=== PATIENT | female | born 1995 | race Caucasian/White ===

== ENCOUNTER 2018-07-10 12:05 | Inpatient (IN) ==
[2018-07-10] MEDS ORDERED: PEPCID IV PRN (12:16)
[2018-07-10] MEDS ORDERED: PEPCID PO PRN (12:16)
[2018-07-10] MEDS ORDERED: TYLENOL PO PRN (12:16)
[2018-07-10] MEDS ORDERED: REGLAN PO ONE (12:16)
[2018-07-10] MEDS ORDERED: LR 500 ML IV ONE (12:16)
[2018-07-10] MEDS ORDERED: KEFZOL 1 GM/D5W 1 GM/50 ML IVPB IV PRN (12:16)
[2018-07-10] MEDS ORDERED: STADOL IV PRN (12:16)
[2018-07-10] MEDS ORDERED: PEPCID PO ONE (12:16)
[2018-07-10] MEDS ORDERED: ZOFRAN IV PRN (12:16)
[2018-07-10] MEDS ORDERED: PITOCIN 30 UNITS/NS 30 UNIT/500 ML IV.SOLN IV SCH (12:30)
[2018-07-10] MEDS ORDERED: SODIUM CHLORIDE 0.9% INJ SCH (12:30)
[2018-07-10 12:52] LABS: URINE SOURCE VOIDED
[2018-07-10 12:54] LABS: BASO# 0.03 X1000 (0.0-0.2); BASO% 0.3 % (0.0-0.8); EOS% 1.1 % (0.0-10.0); HEMATOCRIT 35.2 % (37.0-47.0); HEMOGLOBIN 11.7 g/dL (12.0-16.0); IMM GRAN# 0.02 X1000 (0.0-0.04); IMM GRAN% 0.2 % (0.0-0.5); LYMPH# 1.71 X1000 (1.2-3.4); MCH 28.7 PG (27-31); MCHC 33.2 g/dL (33-37); MCV 86.5 FL (81-99); MONO# 0.81 X1000 (0.11-0.59); MPV 10.6 FL (7.4-10.4); NEUT# 6.35 X1000 (1.4-6.5); NEUT% 70.4 % (42.2-75.2); PLT 251 X1000 (130-400); RBC 4.07 XMIL (4.2-5.4); RDW 12.8 % (11.5-14.5); WBC 9.02 X1000 (4.8-10.8)
[2018-07-10] MEDS: LR 1,000 ML IV SCH ×4 (13:15→17:50)
[2018-07-10 13:21] LABS: BILIRUBIN URINE NEGATIVE (NEGATIVE); BLOOD URINE NEGATIVE (NEGATIVE); CLARITY VERY CLOUDY (CLEAR); COLOR YELLOW; GLUCOSE URINE NEGATIVE (NEGATIVE); KETONE URINE NEGATIVE (NEGATIVE); LEUKOCYTES URINE 2+ (NEGATIVE); NITRITE URINE NEGATIVE (NEGATIVE); PROTEIN URINE NEGATIVE (NEGATIVE); SP GRAVITY URINE 1.015; UR AMPHETAMINES QUAL NONE DETECTED (NONE DETECT); UR BARBITUATES QUAL NONE DETECTED (NONE DETECT); UR BENZODIAZEPIN QUAL NONE DETECTED (NONE DETECT); UR CANNABINOIDS QUAL NONE DETECTED (NONE DETECT); UR COCAINE QUAL NONE DETECTED (NONE DETECT); UR METHADONE QUAL NONE DETECTED (NONE DETECT); UR METHAMPHETAMINE QUAL NONE DETECTED (NONE DETECT); UR OPIATES QUAL NONE DETECTED (NONE DETECT); UR OXYCODONE QUAL NONE DETECTED (NONE DETECT); UR PCP QUAL NONE DETECTED (NONE DETECT); UR PROPOXYPHENE QUAL NONE DETECTED (NONE DETECT); UR TCA QUAL NONE DETECTED (NONE DETECT); UROBILINOGEN URINE NORMAL
[2018-07-10 13:24] LABS: HEMOGLOBIN A1C 5.1 % (4.8-6.0)
--- NOTE | 2018-07-10 15:16 | HISTORY AND PHYSICAL ---
CHIEF COMPLAINT: 40 weeks 1 day gestation for induction, history of gastric sleeve. HISTORY OF PRESENT ILLNESS: Patient is a 22-year-old G1, P0 with EDC of 2016, dated by LMP of 10/02/2017 and confirmed with a 13 week 4 day ultrasound that was consistent with dates. She presents at 40 weeks and [address] Westfall's office for desired induction. She had office visit with Dr. Westfall today who has been participating in her care. She has been on 2 times weekly NST for history of gastric sleeve in 2016 for which she lost 135 pounds. records were reviewed and she did see Maternal Medicine for the history of gastric sleeve, and in January had iron studies that were all within normal limits as well as having a nutrition consult. Of note, patient was not able to complete the 1 hour Glucola screen for diabetes. Her hemoglobin A1c was 5.0 in April 2018. She has no history of diabetes prior. She reports that she has been cramping since last night, that it sometimes takes her breath away, but does not notice any regular contraction pattern. She has had good movement. No vaginal bleeding and no leakage of fluid. PAST MEDICAL HISTORY: 1. Obesity (BMI on admit 41.5) 2. History of bipolar depression 3. Social anxiety 4. PTSD post parental divorce 5. ADHD SURGICAL HISTORY: 1. Gastric sleeve in 2016. She had lost 135 pounds post. 2. 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 She states normally these close. She ended up having a surgery at 13 years of age to close the cleft. MEDICATIONS: vitamins, she was taking Zofran up until approximately 1 month ago. ALLERGIES: Concerta. FAMILY MEDICAL HISTORY: Unremarkable per patient. SOCIAL HISTORY: Patient denies alcohol use or drug use. She has a history of tobacco use, but states quit prior to the . OBSTETRIC HISTORY: G1, P0. GBS status negative. She is A positive. Antibody screen negative. Rubella immune. GC and Chlamydia negative. VDRL is nonreactive. Hepatitis B negative, HIV negative, and TSH of 1.330. Ultrasound was performed 05/29/2018. On review of medical records, she was measuring 33 weeks 5 days on that ultrasound, but by dates at 34 and 2. Estimated weight was 2312 g or 5 pounds, and the placenta was posterior. LABORATORY: On admit: White count 9.02, hemoglobin 11.7, hematocrit of 35.2, platelet count of 251,000. Hemoglobin A1c of 5.1 and glucose on entry at 76. Urine overall unremarkable. 2+ WBCs noted. Urine drug screen was negative. PHYSICAL EXAMINATION: VITAL SIGNS: Temperature 97.6, pulse 86, respiratory rate 20, blood pressure 120/68, O2 sat is 99% on room air. The patient weighs 265 pounds, 5 feet 7 inches tall, BMI of 41.5. GENERAL: Alert and oriented x 3. No acute distress. Lip and tongue piercings present - discussed with patient need to remove. HEENT: Pupils equal, round, reactive to light. No thyromegaly. CARDIOVASCULAR: Regular rate and rhythm. LUNGS: Clear to auscultation bilaterally. ABDOMEN: Bowel sounds present. Soft, nondistended, nontender. No rebound or guarding. Gravid uterus measuring 41 cm. Previous surgical incisions noted - gastric sleeve was laparoscopic in nature. PELVIC: No vaginal bleeding noted and bag of water intact. Patient is at 2/70 /-2 to -3 station, but well applied. The cervix is anterior and very soft. TOCO: Contractions noted approximately every 2 to 5 minutes on the monitor. FHT's: 130s with good variability. Reactive and reassuring category 1 tracing. EXTREMITIES: No calf pain. No edema. Reflexes 1+ bilaterally. ASSESSMENT: A 22-year-old G1, P0 female at 40 weeks and 1 day gestation with history of gastric sleeve presents for induction. PLAN: 1. Patient at office visit today with Dr. Westfall and stated desire for induction and to be "done" with . I did discuss with the patient risks and benefits of induction. I discussed the risks of longer labor as well as reported increased risk of need for C- section with induction that are possible. I discussed pain and possibility of length of time to get her into adequate labor. She states understanding and wanted to proceed with induction. Cervix is favorable and patient already having some mild contractions on monitor. Will start Pitocin at 2 milliunits per minute q.30 minutes,expectant management. GBS status negative. 2. The patient does desire epidural when she is able to get one. cc: Emily Pate MD MTDD
[2018-07-10] MEDS ORDERED: NAROPIN 0.2% INJ ONE (17:00)
[2018-07-10] MEDS ORDERED: FENTANYL-BUPIV-NS 2 MCG-0.1% 200 ML EPIDURAL SCH (17:00)
[2018-07-10] MEDS ORDERED: MINERAL OIL TOP ONE (21:40)
[2018-07-10] MEDS ORDERED: XYLOCAINE-MPF 1% INJ ONE (21:40)
[2018-07-10] MEDS ORDERED: PITOCIN 20 UNITS/NS 20 UNITS/1,000 ML IV.SOLN IV SCH (22:30)
--- NOTE | 2018-07-10 22:34 | PROGRESS NOTE ---
DATE: 07/10/2018 SUBJECTIVE: The patient is comfortable with epidural. OBJECTIVE: Oxytocin at 14. heart rate category 1. Cervix 6/complete/-1. ASSESSMENT: Labor is progressing. PLAN: Continue oxytocin. cc: MD Emily Rutherford MD
[2018-07-10] MEDS ORDERED: PITOCIN 20 UNITS/NS 20 UNITS/1,000 ML IV.SOLN ONE (22:52)
[2018-07-11] MEDS ORDERED: PERI MEDS (DERMOPLAST/NUPERCAINAL/TUCKS) MISC PRN (01:07)
[2018-07-11] MEDS ORDERED: ATARAX PO PRN (01:07)
[2018-07-11] MEDS ORDERED: NORCO-10 PO PRN (01:07)
[2018-07-11] MEDS ORDERED: HYDROXYZINE IM PRN (01:07)
[2018-07-11] MEDS ORDERED: PITOCIN IM PRN (01:07)
[2018-07-11] MEDS ORDERED: AMBIEN PO PRN (01:07)
[2018-07-11] MEDS ORDERED: CYTOTEC PO PRN (01:07)
[2018-07-11] MEDS ORDERED: BOOSTRIX VACCINE IM ONE (01:07)
[2018-07-11] MEDS ORDERED: M-M-R II VACCINE SUBQ ONE (01:07)
[2018-07-11] MEDS ORDERED: XYLOCAINE-MPF 1% INJ PRN (01:07)
[2018-07-11] MEDS ORDERED: NORCO-5 PO PRN (01:07)
[2018-07-11] MEDS ORDERED: BENADRYL PO PRN (01:07)
[2018-07-11] MEDS ORDERED: PITOCIN 30 UNITS/NS 30 UNIT/500 ML IV.SOLN IV SCH (01:15)
[2018-07-11 06:03] LABS: BASO# 0.01 X1000 (0.0-0.2); BASO% 0.1 % (0.0-0.8); EOS# 0.03 X1000 (0.0-0.7); EOS% 0.2 % (0.0-10.0); HEMATOCRIT 30.9 % (37.0-47.0); HEMOGLOBIN 10.1 g/dL (12.0-16.0); IMM GRAN# 0.02 X1000 (0.0-0.04); IMM GRAN% 0.2 % (0.0-0.5); LYMPH# 1.25 X1000 (1.2-3.4); MCH 28.5 PG (27-31); MCHC 32.7 g/dL (33-37); MCV 87.3 FL (81-99); MONO# 1.14 X1000 (0.11-0.59); MONO% 9.1 % (1.7-9.3); MPV 11.5 FL (7.4-10.4); NEUT# 10.09 X1000 (1.4-6.5); NEUT% 80.4 % (42.2-75.2); PLT 214 X1000 (130-400); RBC 3.54 XMIL (4.2-5.4); RDW 12.7 % (11.5-14.5); WBC 12.54 X1000 (4.8-10.8)
--- NOTE | 2018-07-11 07:06 | OB/GYN PROGRESS NOTE ---
Progress Note OB - . OB Progress Note: Vital Signs - 24 hr 07/10/18 12:54 07/10/18 22:30 07/10/18 22:45 Temperature 97.6 F 96.1 F L Pulse Rate 86 113 H 102 H Respiratory Rate 20 22 20 Blood Pressure 120/68 225/126 149/91 Blood Pressure [Right Arm] 225/126 149/91 O2 Sat by Pulse Oximetry 99 100 100 07/10/18 23:00 07/10/18 23:15 07/10/18 23:30 Temperature 97.9 F Pulse Rate 88 83 94 H Respiratory Rate 18 16 18 Blood Pressure 143/81 112/68 140/80 Blood Pressure [Right Arm] 143/81 112/68 140/80 O2 Sat by Pulse Oximetry 100 100 100 07/10/18 23:45 07/11/18 00:00 07/11/18 00:15 Temperature Pulse Rate 96 H 94 H 108 H Respiratory Rate 18 16 20 Blood Pressure 117/66 113/64 121/72 Blood Pressure [Right Arm] O2 Sat by Pulse Oximetry 100 100 100 07/11/18 00:30 07/11/18 01:00 07/11/18 01:30 Temperature 97.2 F L 97.8 F Pulse Rate 97 H 96 H 96 H Respiratory Rate 18 18 16 Blood Pressure 121/74 120/73 117/74 Blood Pressure [Right Arm] O2 Sat by Pulse Oximetry 100 100 100 07/11/18 02:00 07/11/18 03:00 07/11/18 04:00 Temperature 97.8 F Pulse Rate 90 89 82 Respiratory Rate 18 16 16 Blood Pressure 116/71 109/68 101/68 Blood Pressure [Right Arm] O2 Sat by Pulse Oximetry 99 98 99 Laboratory Results - last 24 hr 07/10/18 07/10/18 07/10/18 12:08 12:08 12:40 WBC RBC Hgb Hct MCV MCH MCHC RDW Std Deviation Plt Count MPV Immature Gran % (Auto) Neut % (Auto) Lymph % (Auto) [place]ake % (Auto) Eos % (Auto) Baso % (Auto) Immature Gran # (Auto) Neut # (Auto) Lymph # (Auto) [place] # (Auto) Eos # (Auto) Baso # (Auto) Glucose Estimat Average Glucose Hemoglobin A1c Urine Source VOIDED Urine Color YELLOW Urine Clarity VERY CLOUDY A Urine pH 6.0 Ur Specific [place] 1.015 Urine Protein NEGATIVE Urine Ketones NEGATIVE Urine Blood NEGATIVE Urine Nitrite NEGATIVE Urine Bilirubin NEGATIVE Urine Urobilinogen NORMAL Urine WBC 2+ A Urine Glucose NEGATIVE Urine Opiates Screen NONE DETECTED Ur Oxycodone Screen NONE DETECTED Urine Methadone Screen NONE DETECTED U Propoxyphene Qual NONE DETECTED Ur Barbituates Screen NONE DETECTED Ur Tricyclics Screen NONE DETECTED Ur Phencyclidine Scrn NONE DETECTED Ur Amphetamines Screen NONE DETECTED U Methamphetamines Scrn NONE DETECTED U Benzodiazepines Scrn NONE DETECTED Urine Cocaine Screen NONE DETECTED U Cannabinoids Screen NONE DETECTED RPR NON-REACTIVE 07/10/18 07/10/18 07/10/18 12:40 12:40 12:40 WBC 9.02 RBC 4.07 L Hgb 11.7 L Hct 35.2 L MCV 86.5 MCH 28.7 MCHC 33.2 RDW Std Deviation 12.8 Plt Count 251 MPV 10.6 H Immature Gran % (Auto) 0.2 Neut % (Auto) 70.4 Lymph % (Auto) 19.0 L [place] % (Auto) 9.0 Eos % (Auto) 1.1 Baso % (Auto) 0.3 Immature Gran # (Auto) 0.02 Neut # (Auto) 6.35 Lymph # (Auto) 1.71 [place] # (Auto) 0.81 H Eos # (Auto) 0.10 Baso # (Auto) 0.03 Glucose 76 Estimat Average Glucose 100 Hemoglobin A1c 5.1 Urine Source Urine Color Urine Clarity Urine pH Ur Specific [place] Urine Protein Urine Ketones Urine Blood Urine Nitrite Urine Bilirubin Urine Urobilinogen Urine WBC Urine Glucose Urine Opiates Screen Ur Oxycodone Screen Urine Methadone Screen U Propoxyphene Qual Ur Barbituates Screen Ur Tricyclics Screen Ur Phencyclidine Scrn Ur Amphetamines Screen U Methamphetamines Scrn U Benzodiazepines Scrn Urine Cocaine Screen U Cannabinoids Screen RPR 07/11/18 04:47 WBC 12.54 H RBC 3.54 L Hgb 10.1 L Hct 30.9 L MCV 87.3 MCH 28.5 MCHC 32.7 L RDW Std Deviation 12.7 Plt Count 214 MPV 11.5 H Immature Gran % (Auto) 0.2 Neut % (Auto) 80.4 H Lymph % (Auto) 10.0 L [place] % (Auto) 9.1 Eos % (Auto) 0.2 Baso % (Auto) 0.1 Immature Gran # (Auto) 0.02 Neut # (Auto) 10.09 H Lymph # (Auto) 1.25 [place]ake # (Auto) 1.14 H Eos # (Auto) 0.03 Baso # (Auto) 0.01 Glucose Estimat Average Glucose Hemoglobin A1c Urine Source Urine Color Urine Clarity Urine pH Ur Specific [place] Urine Protein Urine Ketones Urine Blood Urine Nitrite Urine Bilirubin Urine Urobilinogen Urine WBC Urine Glucose Urine Opiates Screen Ur Oxycodone Screen Urine Methadone Screen U Propoxyphene Qual Ur Barbituates Screen Ur Tricyclics Screen Ur Phencyclidine Scrn Ur Amphetamines Screen U Methamphetamines Scrn U Benzodiazepines Scrn Urine Cocaine Screen U Cannabinoids Screen RPR S: doing well, no complaints except tired. No CP or SOB. Ambulating x 1 and voided without difficulty. Lochia present but seems to be slowing per patient. Bottlefeeding. Tolerating po without difficulty and states ready for breakfast. O: VSS and afebrile abd- soft, ND and NT no R/G. U firm at U perineum- well approximated and no swelling ext - no calf pain and no edema A: PPD # 1 S/P - doing well. P: 1. Epidural wearing off - one leg still a little heavy. Has ambulated to bathroom x 1. Increase ambulation discussed with patient. 2. Pre delivery hgb 11.7 post delivery hgb 10.1 - discussed with patient iron rich foods. 3. financial services intern consult for extensive psychiatric history. 4. anticipate discharge home tomorrow.
[2018-07-11] MEDS: MOTRIN PO PRN (16:47)
[2018-07-11] MEDS ORDERED: PERICOLACE PO SCH (21:00)
[2018-07-12] MEDS: MOTRIN PO PRN (00:37)
--- NOTE | 2018-07-12 07:21 | OB/GYN PROGRESS NOTE ---
Progress Note OB - . OB Progress Note: Vital Signs - 24 hr 07/11/18 07:28 07/11/18 11:48 07/11/18 16:41 Temperature 97.1 F L 97.8 F 97.6 F Pulse Rate 80 69 90 Respiratory Rate 18 16 18 Blood Pressure 120/83 100/58 119/78 O2 Sat by Pulse Oximetry 99 99 98 07/11/18 20:35 07/12/18 00:40 Temperature 97.6 F 97 F L Pulse Rate 87 76 Respiratory Rate 18 18 Blood Pressure 98/55 109/70 O2 Sat by Pulse Oximetry 99 99 S: doing well, no c/o. Tolerating po no N/V. No CP or SOB. No c/o leg pains. Ambulating and voiding without difficulty. Lochia minimal per patient. Bottle feeding. O: VSS, Afebrile - see above Abd- soft, ND/NT and no R/G. Uterus firm below umbilicus. Ext- no calf pain and no edema. A: PPD #2 S/P -induction at 40+1 weeks. P: 1. doing well, stable - discharge to home later today. 2. access services librarian consult done yesterday and no further follow up required or requested 3. Discharge instructions discussed with patient and importance of PP check discussed. 4. PP depression discussed with patient at length including signs and symptoms. Patient denies any depression or anxiety at present time. Discussed if any thoughts of harming herself or her daughter to treat as emergency and go to the ER. States understanding and thankful for discussion 5. Motrin OTC and Tylenol OTC use discussed. Continue PNV use daily. 6. Discussed that stitches will dissolve on their own. Good perineal care discussed.
[2018-07-12 07:54] VITALS: BP 109/58
--- NOTE | 2018-07-13 08:23 | OPERATIVE NOTE ---
PROCEDURE DATE: Previously dictated delivery note, job #[id number] was placed on the wrong patient's chart. DELIVERY NOTE: With good pushing effort, patient went on to have a vaginal delivery of a female from [facility], Apgars 9/10, weight 7 pounds 13 ounces. Nuchal cord x1 reduced. Cord blood obtained after clamping and cutting the cord. Placenta delivered intact via simple expression. Second-degree laceration in the midline was repaired with local anesthetic to augment the epidural as well as 2-0 Vicryl. EBL 300 mL. Procedure very well tolerated. cc: MD Emily Rutherford MD
--- NOTE | 2018-07-13 08:35 | DISCHARGE SUMMARY ---
ADMISSION DATE: 07/10/2018 DISCHARGE DATE: 07/12/2018 HOSPITAL COURSE: The patient is a 22-year-old G1, now P1 female who is status post spontaneous vaginal delivery on 07/10/2018. She was brought in at 40 weeks and 1 day gestation for induction at patient request with favorable cervix. She is a patient of Dr. Westfall. Her labor went well on Pitocin. She had spontaneous rupture of membranes on her own, got an epidural for anesthesia, and underwent a spontaneous vaginal delivery of a female on 07/10/[address] Hernandez. Her course has been unremarkable. Vital signs stable, afebrile throughout. Pre delivery hemoglobin was 11.7, post delivery hemoglobin 10.1. She is tolerating p.o. without difficulty. No nausea or vomiting. No chest pain, shortness of breath, or leg pain reported. She is ambulating and voiding without difficulty. Patient is bottle feeding. Her lochia is minimal. Her uterus is firm and below umbilicus. She does have an extensive psychiatric history including bipolar, depression, anxiety, PTSD, and ADHD for which she is currently not on any medications as of admit to the hospital. She is doing quite well and without complaints of any depression or anxiety at present time. She did have a social group worker consult secondary to this for which social group worker felt that no follow-up was needed. I did discuss with patient risks for depression, signs and symptoms and to call if she is having any problems or concerns. She needs to treat this as an emergency if any thoughts of harming herself or the baby do occur and if that is the case, even presenting to the emergency room. She states understanding. She is to follow up with Dr. Westfall at 6 weeks for check if she does not already have that scheduled. She can be seen sooner if she is having any problems or concerns. She states understanding. She is instructed not to lift anything heavier than baby approximately 15 pounds for the next 4 to 6 weeks and gradually increasing her weight capacity at that point. She is instructed on no sex for the next 6 weeks and that discussions regarding control if she is not planning on conception with Dr. Westfall at her visit prior to sexual activity would be preferred. No driving for 2 weeks or until pain free was discussed. Over- the-counter use of Tylenol 1000 mg every 6 hours as needed for discomfort as well as Motrin over- the-counter 600 mg every 6 hours as needed for discomfort were discussed. The patient has not been utilizing any pain medication in the last 24 hours. All questions were answered and patient was discharged to home in stable condition. cc: Emily aPte MD MTDD
== END 2018-07-12 11:05 | disposition home or self-care (01) | DRG 807 ==
LOC: P.NBC 12:05 → P.LD 12:12
PROVIDERS: ADMIT Obstetrics & Gynecology; ATTEND Obstetrics & Gynecology
CPT/HCPCS: 80104; 80301; 80305; 81003; 82947; 83036; 85025; 86592; 90715; A9270; G0431; G0434; G0477; J0595; J2405; J2590; J2795; J7120